=== PATIENT | male | born 1985 | race Caucasian/White ===

== ENCOUNTER 2024-01-10 07:07 | Emergency (ER) | payer OTHER ==
[~2024-01-10] VITALS: Ht 175.3 cm; Wt 95.3 kg
[2024-01-10 07:11] VITALS: BP 141/98; PULSE 62; RESP 18; TEMP 97.4; O2SAT 100
[2024-01-10] MEDS ORDERED: PENI-321 PO (08:03)
[2024-01-10] MEDS ORDERED: IBUP-2213 PO (08:03)
[2024-01-10] MEDS: KETOROLAC 30 MG/ML VIAL IM ONE (08:43)
[2024-01-10 08:52] VITALS: BP 141/98; PULSE 62; RESP 18; TEMP 97.4; O2SAT 100
== END 2024-01-10 08:52 | disposition home or self-care (01) ==
LOC: MED 07:07
DX: K08.89 Other specified disorders of teeth and supporting structures (principal); Z79.1 Long term (current) use of non-steroidal anti-inflammatories (NSAID); Z79.2 Long term (current) use of antibiotics
CPT/HCPCS: 96372; 99283; J1885